=== PATIENT | male | born 1990 | race Caucasian/White ===

== ENCOUNTER 2020-09-01 21:10 | Observation (INO) ==
[~2020-09-01 21:10] MED LIST: *HR* Adenosine 6 MG/2 ML VIAL IVP ONE
[2020-09-01] MEDS ORDERED: *HR* Adenosine 6 MG/2 ML VIAL IVP ONE (21:37)
[2020-09-01] MEDS ORDERED: 0.9 % Sodium Chloride 1,000 ML IV ONE (21:37)
[2020-09-01 21:55] LABS: Basophils # 0.1 K/mcL (0.0-0.2); Basophils % 0.5 %; Eosinophils # 0.7 K/mcL (0.0-0.6); Eosinophils % 4.8 %; Hematocrit 40.9 % (37.5-50.1); Hemoglobin 13.9 g/dL (12.9-16.9); Immature Granulocytes % 0.2 % (0-4); Lymphocytes # 3.8 K/mcL (0.6-4.6); Lymphocytes % 25.1 %; Mean Corpuscular Hemoglobin 29.9 pg (28.0-33.3); Mean Platelet Volume 10.1 fL (9.4-12.4); Monocytes # 1.1 K/mcL (0.0-1.3); Monocytes % 7.3 %; Neutrophils # 9.4 K/mcL (1.6-8.9); Platelet Count 387 K/mcL (140-400); Red Blood Count 4.65 M/mcL (4.19-5.50); Red Cell Distribution Width 12.5 % (11.5-14.5); Segmented Neutrophils % 62.1 %; White Blood Count 15.1 K/mcL (4.3-11.1)
[2020-09-01 22:06] LABS: Activated Partial Thrombo Time 33.9 Seconds (26.0-36.0)
[2020-09-01 22:13] LABS: Alanine Aminotransferase 34 Units/L (7-52); Albumin 4.4 g/dL (3.5-5.7); Albumin/Globulin Ratio 1.3 (1.1-2.2); Alkaline Phosphatase 68 Units/L (34-104); Aspartate Amino Transferase 24 Units/L (13-39); BUN/Creatinine Ratio 15 (6-26); Bilirubin,Total 0.2 mg/dL (0.3-1.0); Blood Urea Nitrogen 12 mg/dL (6-20); Calcium 9.4 mg/dL (8.6-10.3); Carbon Dioxide 28 mEq/L (23-29); Chloride 101 mEq/L (98-107); Globulin 3.4 g/dL (2.4-3.5); Glucose 168 mg/dL (70-105); Magnesium 1.9 mg/dL (1.6-2.6); Osmolality,Calculated 294 (280-300); Potassium 3.3 mEq/L (3.5-5.1); Sodium 140 mEq/L (136-145); Total Protein 7.8 g/dL (6.4-8.9); Troponin I < 0.03 ng/mL (< 0.04); eGFR For African Americans > 60 (> 60); eGFR For Non-African Americans > 60 (> 60)
[2020-09-01] MEDS ORDERED: Isovue-370 500 ML BOTTLE IVP ONE (22:39)
[2020-09-01] MEDS ORDERED: Aspirin 81 MG TAB.CHEW PO ONE (22:42)
[2020-09-01] MEDS ORDERED: *HR* Metoprolol 5 MG/5 ML VIAL IVP ONE (23:30)
[2020-09-01 23:34] LABS: Amphetamine Screen,Urine Negative ng/mL (Cutoff=1000); Barbiturate Screen,Urine Negative ng/mL (Cutoff=200); Benzodiazepines Screen,Urine Negative ng/mL (Cutoff=200); Cannabinoid Screen,Urine Negative ng/mL (Cutoff = 50); Cocaine Screen,Urine Negative ng/mL (Cutoff= 300); Opiate Screen,Urine Negative ng/mL (Cutoff=300); Phencyclidine Screen,Urine Negative ng/mL (Cutoff=25)
[2020-09-02] MEDS ORDERED: Naloxone 0.4 MG/ML INJ IVP PRN (02:53)
[2020-09-02] MEDS ORDERED: 0.9 % Sodium Chloride 1,000 ML IVC SCH (02:53)
[2020-09-02] MEDS ORDERED: Nicotine 21 MG PATCH.TD24 TD SCH (04:00)
[2020-09-02 07:01] VITALS: BP 124/76
[2020-09-02] MEDS ORDERED: Gabapentin 300 MG CAPSULE PO SCH (09:00)
== END 2020-09-02 13:53 | disposition home or self-care (01) ==
LOC: EMEROOPIK 21:10 → INPPIK 21:10
PROVIDERS: ADMIT Family Medicine; ATTEND Family Medicine